=== PATIENT | male | born 1975 | race African-American/Black ===

== ENCOUNTER → 2016-10-06 | Outpatient (CLI) | payer OTHER ==
[~2016-10-06] VITALS: Ht 180.3 cm; Wt 97.5 kg
[~2016-10-06] MED LIST: ACCUPRIL40 MG PO; ACETAMINOPHEN-1 EAC1 PO; ALBUTEROL2.5 MG/0.1 INH; ALBUTEROL2.5 MG/0.5 INH; ALDACTONE25 MG PO; AMLODIPINE BESY10 MG PER TUBE; ASPIR 8181 MG PO; ATORVASTATIN CA40 MG PO; CARVEDILOL12.5 MG PER TUBE; CARVEDILOL25 MG PO; CATAPRES-TTS 20.2 M1 TRANSDERM; CATAPRES0.2 MG TRANSDERM; CIPRO500 MG PO; CLARITIN10 MG PO; CLEOCIN HCL150 M1 PO; CLEOCIN HCL150 MG PO; COMMODE; COREG25 MG PO; FLOMAX0.4 MG PO; FLONASE 0.05%50 MCG NASAL; GLUCAGEN1 M2 IM; GLUCERNA237 M1 PO; HUMALOG100 UNIT/1 SUBQ; HYDROCODONE-APA1 TA1 PO; LASIX 40 MG TAB40 M1 PO; LASIX 40 MG TAB40 M2 PO; LIPITOR40 MG PO; LISINOPRIL20 MG PO; MACROBID 100 M100 M1 PO; NORVASC5 MG PO; PACERONE 200 M200 M1 PER TUBE; PACERONE 200 M200 M1 PO; PAXIL10 MG PO; PRINIVIL20 M1 PO; PRINIVIL20 MG PO; VENTOLIN HFA 1818 GM INH; VITAMIN D-32000 UNIT PO
--- NOTE | ~2016-10-06 | O ---
[facility] [place] [address] OPERATIVE REPORT Name: LATISHA CRAWFORD Room #: [facility] [id number] Admission: 10/06/16 Attend Phys: Hernán Sampson MD Discharge: Date of : 75 Report #: [id number] THIS REPORT FOR: //name// CC: FRANCISCO CLAUDIO Sampson DATE OF SERVICE: 10/06/2016 PREOPERATIVE DIAGNOSES: Previous cerebrovascular accident, dysphagia, now resolved status post previous PEG tube placement. POSTOPERATIVE DIAGNOSES: Previous cerebrovascular accident, dysphagia, now resolved status post previous PEG tube placement. PROCEDURE: EGD with removal of gastric feeding tube. ANESTHESIA: General anesthesia. SURGEON: Hernán Sampson M.D. FINDINGS: Normal appearing gastric anatomy, PEG tube had apparently been changed out for a 20-Grenadian gastrostomy tube with 20 mL balloon inflated. This had apparently been performed at the long-term facility or rehabilitation facility. This tube was removed under direct visualization and the site appeared clean and intact without ulceration or active bleeding. No other obvious ulcerations or abnormalities per gastric mucosa. ESTIMATED BLOOD LOSS: None. INDICATION FOR PROCEDURE: The patient is a 41-year-old -[place] gentleman with history of severe cerebrovascular accident in June 2016; this was associated with persistent encephalopathy. At that time, the patient had an extended ICU course with tracheotomy placement and PEG tube placement by myself. Subsequently the patient was discharged to long-term acute care facility and then a rehabilitation facility. His tracheotomy was ultimately discontinued once his pulmonary status improved. He also was subsequently able to swallow on his own after extended rehabilitation. At this time, the PEG tube has no longer been utilized. At some point during his course, the PEG tube apparently became nonfunctional and this was exchanged at that facility for a gastrostomy tube, although this was not made aware to me prior to this procedure. However, the gastrostomy tube has not been used for several weeks and the patient is requesting its discontinuation. Full discussion of the risks and benefits of EGD with removal of the feeding tube was held with the patient and his . All questions were answered to their satisfaction. Written informed consent was obtained. [address] [address] OPERATIVE REPORT Name: LATISHA CRAWFORD Room #: REG CLI Chris.#: [id number] Admission: 10/06/16 Attend Phys: Hernán Sampson MD Discharge: Date of : 75 Report #: [id number] DESCRIPTION OF PROCEDURE: The patient was brought to the operating room and placed in a supine position. Timeout was taken to verify the patient's identity and to plan the procedure. SCDs were in placed in lower extremities bilaterally. Anesthesia was induced and the patient was made comfortable. Fujinon EGD scope was passed through the oral cavity and oropharynx and into the esophagus. Stomach was it entered and then insufflated. No obvious mucosal abnormalities were identified. The feeding tube was located at the anterior abdominal wall at the site of the previous PEG tube placement; this was noted to be a 20-Grenadian gastrostomy tube with saline balloon intact. The saline was removed externally and the tube was discontinued. The tract was noted to be clean and intact with no ulceration or active bleeding. The site was monitored for several minutes and this was again verified. Further examination of the gastric mucosa and the pylorus showed no other obvious abnormalities or lesions and the gastric lumen was then desufflated. The Fujinon endoscope was then removed from the oral cavity carefully with suctioning performed upon extraction to further desufflated the upper GI tract. At this point, the case was ended, all instrumentation had been extracted and accounted for. All counts were correct per nursing report. The patient was awakened and taken to the postoperative care unit in stable condition. <ELECTRONICALLY SIGNED> By: Hernán Sampson MD 10/06/16 1301 [id number] [id number] Hernán Sampson MD /nt
== END | disposition home or self-care (01) ==
LOC: GI 06:20
DX: Z43.1 Encounter for attention to gastrostomy (principal); I10 Essential (primary) hypertension; E78.00 Pure hypercholesterolemia, unspecified; I25.2 Old myocardial infarction; I25.10 Atherosclerotic heart disease of native coronary artery without angina pectoris; E11.9 Type 2 diabetes mellitus without complications; Z86.73 Personal history of transient ischemic attack (TIA), and cerebral infarction without residual deficits
CPT/HCPCS: 62110

== ENCOUNTER 2018-03-19 01:02 | Emergency (ER) | payer OTHER ==
[~2018-03-19] VITALS: Ht 180.3 cm; Wt 122.5 kg
[2018-03-19 01:53] LABS: ABSOLUTE NEUTROPHILS 2.4 thou/uL (1.4-8.2); BASOPHILS 1.6 % (0.0-2.0); EOSINOPHILS 1.6 % (0.0-3.0); HEMATOCRIT 44.3 % (42.0-52.0); LYMPHOCYTES 39.4 % (24.0-44.0); MCH 29.1 pg (26.0-34.0); MCHC 33.8 g/dL (28.0-37.0); MCV 86.1 fL (80.0-100.0); MONOCYTES 8.2 % (1.0-8.0); PLATELET COUNT 170 thou/uL (150-400); POLYS 49.2 % (36.0-66.0); RBC 5.14 mil/uL (4.50-6.00); RDW 13.5 % (10.5-14.5); WBC 4.8 thou/uL (4.0-11.0)
[2018-03-19 01:59] LABS: ANION GAP 9 mmol/L (7-16); BUN 11 mg/dL (7-18); CALCIUM 9.1 mg/dL (8.5-10.1); CHLORIDE 101 mmol/L (98-107); CO2 28 mmol/L (21-32); CREATININE 1.7 mg/dL (0.7-1.3); GLUCOSE 151 mg/dL (74-106); POTASSIUM 3.9 mmol/L (3.5-5.1); SODIUM 138 mmol/L (136-145)
[2018-03-19 02:05] LABS: ALBUMIN 3.7 g/dL (3.4-5.0); SALICYLATE < 2.8 mg/dL (2.8-20.0); SGOT 16 U/L (15-37); SGPT 35 U/L (30-65); TOTAL BILIRUBIN 0.4 mg/dL (<0.1-1.0); TOTAL PROTEIN 7.9 g/dL (6.4-8.2)
[2018-03-19] MEDS ORDERED: ATIVAN1 MG PO (03:37)
[2018-03-19 04:03] LABS: URINE BILIRUBIN NEGATIVE (Negative); URINE BLOOD NEGATIVE (Negative); URINE CLARITY CLEAR; URINE COLOR YELLOW; URINE GLUCOSE-RANDOM* NEGATIVE (Negative); URINE KETONES NEGATIVE (Negative); URINE LEUKOCYTES-REFLEX NEGATIVE (Negative); URINE NITRITE-REFLEX NEGATIVE (Negative); URINE PROTEIN (DIPSTICK) 1+ (Negative); URINE SPECIFIC GRAVITY >= 1.030 (1.005-1.035)
[2018-03-19 04:17] LABS: SQUAMOUS 0-3 Few /LPF (0-3)
[2018-03-19 04:18] LABS: BACTERIA-REFLEX 1-9 Few /HPF (None Seen); CASTS None Seen /LPF (None Seen); CRYSTALS None Seen /LPF (None Seen); MUCUS 4-6 Moderate strn/LPF (None Seen); URINE RBC None Seen /HPF (0-2); URINE WBC-REFLEX 0-5 Rare /HPF (0-5)
[2018-03-19 04:20] LABS: AMP/METHAMP Negative (Negative); BARBITURATES Negative (Negative); BENZODIAZEPINES Negative (Negative); COCAINE Negative (Negative); METHADONE Negative (Negative); OPIATES Negative (Negative); PCP Negative (Negative)
== END 2018-03-19 04:06 | disposition home or self-care (01) ==
LOC: ER 01:02
PROVIDERS: Emergency Medicine
DX: G47.00 Insomnia, unspecified (principal); R44.0 Auditory hallucinations; I42.9 Cardiomyopathy, unspecified; I25.10 Atherosclerotic heart disease of native coronary artery without angina pectoris; I10 Essential (primary) hypertension; E78.00 Pure hypercholesterolemia, unspecified; Z90.89 Acquired absence of other organs

== ENCOUNTER 2018-05-30 00:26 | Emergency (ER) | payer OTHER ==
[~2018-05-30] VITALS: Ht 180.3 cm; Wt 108.9 kg
--- NOTE | ~2018-05-30 | EKG ---
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 BILL : 1975 Requested By: Jose Bowman Order Number: [id number] MD: Stanley Klein Measurements Intervals [place] Rate: 66 P: 18 GA: 222 QRS: -59 QRSD: 111 T: -7 QT: 427 QTc: 448 Interpretive Statements Sinus rhythm Prolonged GA interval Left ventricular hypertrophy Inferior infarct, old Anterior infarct, old No previous ECG available for comparison Electronically Signed On 06-02-2018 14:46:38 CDT by Stanley Klein [email or web address] <ELECTRONICALLY SIGNED> By: Stanley Klein MD 06/02/18 1446 0243 0243 Stanley Klein MD /SRIRAM
[~2018-05-30 00:26] MED LIST changes: +ATIVAN1 MG PO
[2018-05-30] MEDS ORDERED: TRAZODONE HCL100 MG PO (00:52)
[2018-05-30] MEDS ORDERED: FOLBIC RF TABL1 EACH PO (00:52)
[2018-05-30] MEDS ORDERED: SPIRONOLACTONE25 M1 PO (00:52)
[2018-05-30] MEDS ORDERED: ENTRESTO 97 MG1 EACH PO (00:53)
[2018-05-30] MEDS ORDERED: COREG25 MG PO (00:53)
[2018-05-30] MEDS ORDERED: HYDRALAZINE 2525 MG PO (00:54)
[2018-05-30] MEDS ORDERED: ATORVASTATIN CA40 MG PO (00:54)
[2018-05-30 03:24] LABS: ABSOLUTE NEUTROPHILS 2.2 thou/uL (1.4-8.2); BASOPHILS 1.4 % (0.0-2.0); EOSINOPHILS 1.4 % (0.0-3.0); HEMATOCRIT 43.3 % (42.0-52.0); HEMOGLOBIN 14.5 gm/dL (14.0-18.0); LYMPHOCYTES 37.3 % (24.0-44.0); MCH 28.8 pg (26.0-34.0); MCHC 33.6 g/dL (28.0-37.0); MCV 85.7 fL (80.0-100.0); MONOCYTES 8.7 % (1.0-8.0); PLATELET COUNT 135 thou/uL (150-400); POLYS 51.2 % (36.0-66.0); RBC 5.05 mil/uL (4.50-6.00); RDW 13.8 % (10.5-14.5); WBC 4.3 thou/uL (4.0-11.0)
[2018-05-30 03:38] LABS: URINE BILIRUBIN NEGATIVE (Negative); URINE BLOOD NEGATIVE (Negative); URINE CLARITY CLEAR; URINE COLOR YELLOW; URINE GLUCOSE-RANDOM* NEGATIVE (Negative); URINE KETONES NEGATIVE (Negative); URINE LEUKOCYTES-REFLEX NEGATIVE (Negative); URINE NITRITE-REFLEX NEGATIVE (Negative); URINE PROTEIN (DIPSTICK) TRACE (Negative)
[2018-05-30 03:40] LABS: ALBUMIN 3.6 g/dL (3.4-5.0); BUN 14 mg/dL (7-18); CALCIUM 9.2 mg/dL (8.5-10.1); CO2 28 mmol/L (21-32); CREATININE 1.5 mg/dL (0.7-1.3); GLUCOSE 116 mg/dL (74-106); SALICYLATE < 2.8 mg/dL (2.8-20.0); SGOT 13 U/L (15-37); SGPT 22 U/L (30-65); TOTAL BILIRUBIN 0.4 mg/dL (<0.1-1.0); TOTAL PROTEIN 7.6 g/dL (6.4-8.2); TROPONIN-I 0.06 ng/mL (<0.06)
[2018-05-30 03:48] LABS: ANION GAP 5 mmol/L (7-16); CHLORIDE 104 mmol/L (98-107); POTASSIUM 3.6 mmol/L (3.5-5.1); SODIUM 137 mmol/L (136-145)
[2018-05-30 03:48] LABS: AMP/METHAMP Negative (Negative); BARBITURATES Negative (Negative); BENZODIAZEPINES Negative (Negative); COCAINE Negative (Negative); METHADONE Negative (Negative); OPIATES Negative (Negative); PCP Negative (Negative)
[2018-05-30 07:45] VITALS: BP 116/89
== END 2018-05-30 08:14 | disposition home or self-care (01) ==
LOC: ER 00:26 → EDBD 00:26 → ER 08:14
PROVIDERS: Emergency Medicine
DX: R51 Headache (principal); R44.0 Auditory hallucinations